=== PATIENT | male | born 1985 | race Caucasian/White ===

== ENCOUNTER 2016-05-16 02:02 | Emergency (ER) | payer OTHER ==
[~2016-05-16] VITALS: Ht 182.9 cm; Wt 61.2 kg
[~2016-05-16 02:02] MED LIST: KEFLEX 500MG.500 MG PO; NOMEDS *; PREDNISONE 20MG20 MG PO; SEPTRA DS 800 M1 TAB PO; TESSALON PERLE100 MG PO; ZITHROMAX Z PA250 MG PO
[2016-05-16] MEDS ORDERED: ZANTAC 150150 MG PO (02:06)
[2016-05-16 02:28] LABS: HEMOGLOBIN 16.5 g/dL (14.1-18.0); LYMPH # 1.1 K/mm3 (0.7-4.5); LYMPH % 7.6 % (10-50)
[2016-05-16 02:49] LABS: BUN 13 mg/dL (7-18); GFR (ESTIMATED) 100 ML/MIN (>60)
[2016-05-16 02:52] LABS: NEUTROPHILS 92 % (42-76)
--- NOTE | 2016-05-16 03:10 | Emergency Room Report ---
History of Present Illness Time Seen by [id number] Presenting Problem in Triage Pt arrived:Walked Presenting Problem:PT COMPLAINING OF PAIN IN CENTER OF CHEST THAT HE STATES THAT THE PAIN IS "ALL OVER" HIS CHEST AND HE FEELS LIKE HIS HEART IS FLUTTERING POINTING TO WHERE HE IS HAVING PAIN, PT POINTS TO UPPER EPIGASTRIC AREA. PT ALSO COMPLAINING OF NAUSEA. 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 N Clinical Suspician of Infection? N Mental Status: 1 - Regular (Normal Baseline) Sepsis Risk:Low Sepsis Risk Have you (or family members/close friends) recently traveled outside the [place]? N If Yes, where/when: Have you had exposure to infectious disease within the past month? N TB? Other? Specify: Source patient, RN notes reviewed, family, old records Exam Limitations no limitations Comment pt with upper abd pain with vomiting w/o bleeding or melena Cardiac Chest Pain Chest pain indicative of cardiac No Timing/Duration this evening Severity moderate ALLERGIES Coded Allergies: No Known Allergies (05/16/16) Home Medications Reported Medications Ranitidine Hcl (Zantac) 150 MG PO BID History Medical History General CAD? No Angina: No MT: No Hypertension? No Hyperlipidemia? No CHF? No DVT? No PE? No COPD? No Asthma? No Anemia? No GERD? Yes Gastric ulcers? No GI Bleed? No Hernia? No Thyroid Problems? No Hypothyroidism? No CVA? No Seizures? No Diabetes? No Renal Insuffiency? No End Stage Renal Disease? No UTI? No Stones? No BPH? No GB Disease: No Nephritic Syndrome? No Asplenia? No Hepatitis? No Sickle Cell Disease? No Arthritis? No Migraines? No Cataracts? No Glaucoma? No MRSA? No HIV? No TB? No Anxiety? No Depression? No Cancer? No More? No Immunization Hx DT/Tetanus 02/12/11 Surgical Hx Previous Surgery?Y SCOPE Social History Smoking Hx Smoker: Current Every Day Smoker Tobacco: Yes Type Cigarettes Packs/day 1 1/2 - 2 Packs Are you/the child exposed to second-hand smoke: Yes Alcohol Alcohol: Yes Drugs none Review of Systems All Other Systems Reviewed and Negative Constitutional denies fever Eyes denies drainage ENT denies: ear pain, epistaxis, throat pain. Respiratory denies cough, denies shortness of breath, denies wheezing Cardiovascular denies chest pain, denies syncope Gastrointestinal see HPI, abdominal pain, denies diarrhea, nausea, vomiting Genitourinary denies: dysuria, frequency, hesitancy, hematuria. Musculoskeletal denies back pain, denies joint pain, denies joint swelling, denies neck pain Skin denies rash Psychiatric/Neurological denies headache, denies seizure Physical Exam Vital Signs Vital Signs Date Time Temp Pulse Resp B/P Pulse O2 O2 Flow FiO2 Ox Delivery Rate 05/16 0355 76 18 139/79 98 05/16 0203 98.4 81 18 138/89 99 - WBC >12,000 or <4,000 or 10% bands? 2 or more SIRS Criteria Met? B/P:139/79 MAP:105 Creatinine >2.0? UA output<0.5ml/kg/hr for 2 hrs? Platelet count >100,000? Lactate >2.0mmol/1? INR >1.2 or PTT > than 60 sec? Evidence of Organ Dysfunction? Provider documented clinical suspician of infection? N Sepsis Criteria Count: 0 Sepsis Risk: Low Sepsis Risk General Appearance no apparent distress Eye Exam - bilateral eye PERRL, bilateral eye EOMI Ear, Nose, Throat normal ENT inspection Neck supple Respiratory Status No: respiratory distress. 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 No Results/Orders Laboratory Tests 05/16/16 0215: Sodium 140, Potassium 4.2, Chloride 103, Carbon Dioxide 28, BUN 13, Creatinine 0.9, Estimated Creat Clear 106, Estimated GFR (MDRD) 100, Glucose 114 H, Calcium 9.0, Total Bilirubin 0.6, AST 15, ALT 21, Alkaline Phosphatase 92, Creatine Kinase 81, CK-MB (CK-2) Rel Index 0.6, CK and CKMB Interp 0.5, Troponin I < 0.02, Total Protein 7.6, Albumin 4.2, Globulin 3.4 H, Albumin/Globulin Ratio 1.2, Amylase 54, Lipase 84, WBC 14.9 H, RBC 5.25, Hgb 16.5, Hct 48.3, MCV 92.0, RDW 14.0, Plt Count 223, MPV 8.9, Gran % 85.9 H, Gran # 12.8 H, Total Counted 100, Lymphocytes % 7.6 L, Monocytes % 3.8, Eosinophils % 2.5, Basophils % 0.2, Neutrophils 92 H, Lymphocytes (Manual) 8 L, Lymphocytes # 1.1, Monocytes # 0.6, Eosinophils # 0.4, Basophils # 0.0, Platelet Estimate NORMAL, Anisocytosis 1+, PUBS MCHC 34.2, MCH 31.5 H Current Medication Orders Sig/Steph Start time Last Medication Dose Route Stop Time Status Admin Famotidine 0 .STK-MED ONE 05/16 217 DC IV Metoclopramide HCl 0 .STK-MED ONE 05/16 217 DC .ROUTE Famotidine 20 MG ONCE ONE 05/16 214 DC 05/16 IV 05/16 215 0222 Metoclopramide HCl 10 MG ONCE ONE 05/16 214 DC 05/16 IVP 05/16 215 0222 Sodium Chloride 10 ML PRN PRN 05/16 214 AC 05/16 IV 05/17 208 0223 Sodium Chloride 8 ML ONCE ONE 05/16 214 DC 05/16 IV 05/16 215 0223 Orders Procedure Date/time Status DIET-NOTHING BY MOUTH 05/[address] ABD & PELVIS W/O CONTRAST 05/[address] ABD/PELVIS REQ 05/16 236 Complete DIFFERENTIAL-WBC 05/16 214 Complete 12 LEAD EKG-BREN (INITIAL) 05/16 208 Active ELECTROCARDIOGRAM REQUEST 05/16 208 Active IV SALINE LOCK 05/16 208 Active LIPASE 05/16 208 Complete CBC WITH AUTO DIFF 05/16 208 Complete CARDIAC ENZYMES 05/16 208 Complete CHEM 12 PROFILE 05/16 208 Complete AMYLASE 05/16 208 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 ST/[facility] chgs XRAY/CT/US XRAY/CT/US CT abdomen, pelvis CT interpretation by discussed w/radiologist Time results known: 425 CT Results normal/NAD Departure Departure Time of Disposition 421 Disposition DC Home or Self Care(routine) Clinical Impression Primary Impression: Gastritis Qualifiers: Gastritis type: unspecified gastritis Chronicity: acute Gastritis bleeding: without bleeding Qualified Code: K29.00 - Acute gastritis without bleeding Condition STABLE Patient Instructions DI for Vomiting -- Adult Additional Instructions use meds and see pcp for follow up Discharge Counseling Counseled pt/family regarding diagnosis, test results, medications/RX, follow up needs Prescriptions Current Visit Scripts Pantoprazole Sodium (Protonix 40MG TAB) 40 MG PO DAILY #30 TAB ED Critical Care Critical Care No at 0426
[2016-05-16] MEDS ORDERED: PROTONIX 40MG T40 MG PO (04:24)
[2016-05-16 04:38] VITALS: BP 139/79
--- NOTE | 2016-05-16 09:50 | RADIOLOGY REPORT PS360 ---
CT ABD PELVIS W/O CONTRAST CLINICAL INDICATION: ABD PAIN, VOMITING, NAUSEA COMPARISON: None TECHNIQUE: Axial images obtained with sagittal and coronal reformats. PROCEDURE: Oral Contrast: None IV Contrast: None . FINDINGS: Lower thorax: No acute finding ABDOMEN: Liver: No masses or biliary dilatation. Gallbladder: Nondistended. No radio opaque stones. Pancreas: No masses or peripancreatic fluid collections. Spleen: Unremarkable. Adrenals: Unremarkable Kidneys/ureters: No masses. No renal calculi. No hydronephrosis. No perinephric fluid collections. No ureteral dilatation or obvious ureteral calculi. PELVIS: Reproductive: Unremarkable Bladder: Nondistended. No obvious stones or masses. Appendix: No evidence of appendicitis ABDOMEN & PELVIS: Stomach bowel: Multiple fluid-filled loops of small and large bowel which are nondistended. There are a few scattered air-fluid levels. Peritoneum: No abnormal fluid collections. No obvious inflammatory changes. No free air. Lymph nodes: No enlarged lymph nodes apparent. Vasculature: No evidence of abdominal aortic aneurysm. No retroperitoneal hemorrhage evident. There is an oval area of soft tissue attenuation along the left aspect of the abdominal aorta infrarenal area measuring 6 x 2 cm cephalad to caudad and transverse. This could represent a fluid-filled loop of small bowel, an area of adenopathy, or dilated venous structure. Bones: No acute fracture IMPRESSION: 1. Fluid-filled loops of small and large bowel scattered air-fluid levels suggesting enteritis. 2. No other acute abnormality evident. 3. Oval opacity to the left of the infrarenal abdominal aorta which could be due to unopacified bowel, adenopathy, or dilated venous structure. Follow-up with IV and oral contrast may be of further value clinically warranted
== END 2016-05-16 04:39 | disposition home or self-care (01) ==
LOC: ER 02:02
PROVIDERS: Emergency Medicine
DX: K29.00 Acute gastritis without bleeding (principal); Z72.0 Tobacco use; K21.9 Gastro-esophageal reflux disease without esophagitis